=== PATIENT | female | born 2000 | race Caucasian/White ===

== ENCOUNTER 2024-06-09 08:08 | Inpatient (IN) | payer OTHER ==
[2024-06-09 09:27] LABS: BASO % 0.4 % (0-2.0); EOS % 0.4 % (0-4.5); HEMATOCRIT 39.8 % (32.4-45.2); HEMOGLOBIN 13.3 GM/dL (10.7-15.3); LYMPH % 14.7 % (8-40); MCHC 33.5 g/dl (32.0-36.0); MEAN CELL VOLUME 83.5 fl (80-96); MEAN PLT VOLUME 10.4 fl (7.5-11.1); MONO % 7.6 % (3.8-10.2); NEUT % 76.9 % (42.8-82.8); PLATELET COUNT 140 10^3/uL (134-434); RBC 4.77 M/mm3 (3.60-5.2); RDW 13.4 % (11.6-15.6); WHITE BLOOD COUNT 8.1 K/mm3 (4.0-10.0)
[2024-06-09 09:33] VITALS: BMI 37.3
[2024-06-09 09:33] LABS: INR 0.94 (0.83-1.09); PROTHROMBIN TIME (PATIENT) 10.8 SEC (9.7-13.0)
[2024-06-09 09:36] LABS: ACTIVATED PTT 28.7 SECONDS (25.2-36.5)
[2024-06-09 09:46] LABS: CALCIUM 8.8 mg/dL (8.5-10.1)
[2024-06-09 09:50] LABS: CREATININE 0.5 mg/dL (0.55-1.3)
[2024-06-09] MEDS ORDERED: IBUPROFEN 600 MG TABLET (FP) PO PRN (09:54)
[2024-06-09] MEDS ORDERED: ACETAMINOPHEN 325 MG TABLET (FP) PO PRN (09:54)
[2024-06-09] MEDS ORDERED: ONDANSETRON 4 MG/2 ML VIAL IVPUSH PRN (09:54)
[2024-06-09] MEDS ORDERED: morphine SULFATE/PF 1 MG/2 ML (2cc Syringe - QUVA) ONE (10:50)
[2024-06-09] MEDS ORDERED: FENTANYL CITRATE/PF 50 MCG/ML VIAL ONE (10:51)
[2024-06-09] MEDS ORDERED: OXYTOCIN 10 UNITS/ML VIAL ONE (10:52)
[2024-06-09] MEDS ORDERED: KETOROLAC TROMETHAMINE 30 MG/1 ML VIAL ONE (10:52)
[2024-06-09] MEDS ORDERED: ONDANSETRON 4 MG/2 ML VIAL ONE (10:52)
[2024-06-09] MEDS ORDERED: DEXAMETHASONE SOD PHOSPHATE 4 MG/1 ML VIAL ONE (10:52)
[2024-06-09] MEDS ORDERED: OXYTOCIN 20 UNITS in 0.9% NS 20 UNIT/1,000 ML INFUS.BAG IV ONE (13:03)
[2024-06-09 13:05] LABS: CORD BASE EXCESS -4.9 mmol/L (0-2); CORD HCO3 22.1 mmHg (20-29); CORD HCO3 22.7 mmHg (20-29); CORD PCO2 51.5 mmHg (30-78); CORD PCO2 62.9 mmHg (30-78); CORD pH 7.163 (7.14-7.44); CORD pH 7.262 (7.14-7.44)
[2024-06-09] MEDS ORDERED: METHYLERGONOVINE MALEATE 0.2 MG/1 ML AMP IM PRN (14:20)
[2024-06-09] MEDS ORDERED: ACETAMINOPHEN 1000 MG/100 ML BAG IVPB PRN (14:22)
[2024-06-09] MEDS ORDERED: IBUPROFEN 800 MG/8 ML IJ IVPB PRN (14:24)
[2024-06-09] MEDS: OXYTOCIN 20 UNITS in 0.9% NS 20 UNIT/1,000 ML INFUS.BAG IV SCH (14:40)
[2024-06-10] MEDS ORDERED: oxyCODONE HCL 5 MG TABLET PO PRN ×2 (02:20)
[2024-06-10] MEDS: IBUPROFEN 600 MG TABLET (FP) PO PRN (05:07)
[2024-06-10 08:02] LABS: BASO % 0.2 % (0-2.0); EOS % 0.4 % (0-4.5); HEMATOCRIT 35.8 % (32.4-45.2); HEMOGLOBIN 12.4 GM/dL (10.7-15.3); LYMPH % 9.1 % (8-40); MCH 28.8 pg (25.7-33.7); MCHC 34.6 g/dl (32.0-36.0); MEAN CELL VOLUME 83.4 fl (80-96); MEAN PLT VOLUME 11.4 fl (7.5-11.1); MONO % 11.1 % (3.8-10.2); NEUT % 79.2 % (42.8-82.8); PLATELET COUNT 121 10^3/uL (134-434); RBC 4.29 M/mm3 (3.60-5.2); RDW 13.7 % (11.6-15.6); WHITE BLOOD COUNT 9.1 K/mm3 (4.0-10.0)
[2024-06-10] MEDS: SIMETHICONE 80 MG TAB.CHEW (FP) PO PRN (10:06)
[2024-06-10 21:34] VITALS: RESP 18
[2024-06-11] MEDS: ACETAMINOPHEN 325 MG TABLET (FP) PO PRN (15:12)
[2024-06-11] MEDS: BISACODYL 10 MG SUPP.RECT RC PRN (19:21)
[2024-06-12 07:25] LABS: BASO % 0.4 % (0-2.0); EOS % 1.5 % (0-4.5); HEMATOCRIT 35.7 % (32.4-45.2); LYMPH % 12.4 % (8-40); MCH 28.8 pg (25.7-33.7); MCHC 33.7 g/dl (32.0-36.0); MEAN CELL VOLUME 85.2 fl (80-96); MEAN PLT VOLUME 10.6 fl (7.5-11.1); MONO % 7.4 % (3.8-10.2); NEUT % 78.3 % (42.8-82.8); PLATELET COUNT 149 10^3/uL (134-434); RBC 4.19 M/mm3 (3.60-5.2); RDW 13.6 % (11.6-15.6); WHITE BLOOD COUNT 8.8 K/mm3 (4.0-10.0)
[2024-06-12 09:59] VITALS: BP 125/84; PULSE 98; TEMP 98.1
== END 2024-06-12 14:00 | disposition home or self-care (01) | DRG 540 ==
LOC: JLDR 08:08 → J3W 15:05
PROVIDERS: ADMIT Obstetrics & Gynecology Obstetrics; ATTEND Obstetrics & Gynecology Obstetrics
PROC: 10D00Z1 Extraction of Products of Conception, Low, Open Approach (ICD-10-PCS; principal; 2024-06-09)
DX: O34.211 Maternal care for low transverse scar from previous cesarean delivery (principal); N85.8 Other specified noninflammatory disorders of uterus; Z3A.39 39 weeks gestation of pregnancy; Z37.0 Single live birth
CPT/HCPCS: 36415; 36600; 59409; 80048; 82803; 85025; 85610; 85730; 86780; 86850; 86900; 86901; 88307-TC; 94010